=== PATIENT | female | born 1970 | race Two or more races ===

== ENCOUNTER 2016-05-03 14:39 | Inpatient (IN) | payer MEDICAID ==
[~2016-05-03] VITALS: Ht 152.4 cm; Wt 88.0 kg
[~2016-05-03 14:39] MED LIST: CLOT1CRE78; PHEN95TA
[2016-05-03 15:23] LABS: Basophils # (auto) 0 uL; Basophils % (auto) 0.2 % (0.0-2.0); Eosinophils # (auto) 0.1 uL; Eosinophils % (auto) 1.3 % (0.0-7.0); Hematocrit 39.7 % (36.0-46.0); Hemoglobin 13.2 g/dL (12.2-16.2); Lymphocytes # (auto) 2.1 uL; Mean Corpuscular Hemoglobin 29.5 pg (28.0-32.0); Mean Corpuscular Hgb Conc. 33.3 g/dL (32.0-36.0); Mean Corpuscular Volume 88.8 fL (80.0-100.0); Mean Platelet Volume 8.7 fL (7.4-10.4); Monocytes # (auto) 0.6 uL; Monocytes % (auto) 6.5 % (0.0-12.0); Neutrophils # (auto) 5.8 uL; Platelet Count (auto) 300 10^3/uL (140-450); Red Cell Distribution Width 12.6 % (11.6-16.0); White Blood Cell 8.6 10^3/uL (4.4-10.8)
[2016-05-03 15:41] LABS: Albumin 3.6 g/dL (3.4-5.0); Anion Gap 9 (5-15); Aspartate Aminotransferase 10 U/L (15-37); BUN/Creatinine Ratio 20.6; Blood Urea Nitrogen 13 mg/dL (7-18); Calcium 8.1 mg/dL (8.5-10.1); Carbon Dioxide 26 mmol/L (21-32); Chloride 107 mmol/L (98-107); GFR African American 130 mL/min; GFR Non-African American 108 mL/min; Glucose 100 mg/dL (74-106); Magnesium 2.3 mg/dL (1.6-2.6); Potassium 3.9 mmol/L (3.5-5.1); Sodium 142 mmol/L (136-145)
[2016-05-03 15:46] LABS: Alkaline Phosphatase 71 U/L (45-117); Bilirubin, Total 0.2 mg/dL (0.2-1.0); Total Protein 7.4 g/dL (6.4-8.2)
[2016-05-03 20:59] LABS: Urine Bilirubin Negative (Negative); Urine Color Yellow (Yellow); Urine Glucose Normal (Normal); Urine Ketone Negative (Negative); Urine Mucus FEW (None Seen); Urine RBC 1 /hpf (0 - 4); Urine Squamous Epithelial Cell FEW /hpf (<5); Urine Urobilinogen Normal (Negative)
[2016-05-03 21:00] LABS: Urine Blood 1+ /uL (Negative); Urine Nitrite POSITIVE (Negative)
[2016-05-04] VITALS (8 sets, daily range): BP systolic 96–111; BP diastolic 50–67
[2016-05-04] MEDS ORDERED: MORPHINE SULF INJ 2 MG/ML SYRINGE 1ML IV PRN (00:45)
[2016-05-04] MEDS ORDERED: ONDANSETRON HCL 4 MG/2 ML VIAL IV PRN (00:45)
[2016-05-04] MEDS ORDERED: ACETAMINOPHEN 325 MG TAB PO PRN (00:45)
[2016-05-04] MEDS ORDERED: HYDROcodone-ACET 5/325MG TAB PO PRN (00:45)
[2016-05-04] MEDS ORDERED: cefTRIAXone 1GM/50ML D5W 50 ML IV ONE (00:45)
[2016-05-04] MEDS ORDERED: PANTOPRAZOLE SODIUM 40 MG/10 ML VIAL IV ONE (00:45)
[2016-05-04] MEDS ORDERED: TEMAZEPAM 15 MG CAP PO PRN (00:45)
[2016-05-04] MEDS: SODIUM CHLORIDE 0.9% 1,000 ML IV SCH ×2 (00:55→16:31)
[2016-05-04] MEDS: cefTRIAXone 1GM/50ML D5W 50 ML IV SCH (09:39)
[2016-05-04] MEDS: PANTOPRAZOLE SODIUM 40 MG/10 ML VIAL IV SCH (09:41)
[2016-05-05 05:00] VITALS: BP 93/59
[2016-05-05 06:00] LABS: Basophils # (auto) 0 uL; Basophils % (auto) 0.4 % (0.0-2.0); Eosinophils # (auto) 0.1 uL; Eosinophils % (auto) 1.6 % (0.0-7.0); Hematocrit 36.8 % (36.0-46.0); Hemoglobin 12.4 g/dL (12.2-16.2); Lymphocytes # (auto) 1.7 uL; Lymphocytes % (auto) 29.9 % (10.0-50.0); Mean Corpuscular Hemoglobin 29.6 pg (28.0-32.0); Mean Corpuscular Hgb Conc. 33.6 g/dL (32.0-36.0); Mean Corpuscular Volume 88.3 fL (80.0-100.0); Mean Platelet Volume 8.5 fL (7.4-10.4); Monocytes # (auto) 0.4 uL; Monocytes % (auto) 7.3 % (0.0-12.0); Neutrophils # (auto) 3.4 uL; Neutrophils % (auto) 60.8 % (37.0-80.0); Platelet Count (auto) 279 10^3/uL (140-450); Red Cell Distribution Width 12.7 % (11.6-16.0); White Blood Cell 5.6 10^3/uL (4.4-10.8)
[2016-05-05 06:34] LABS: Albumin 3.3 g/dL (3.4-5.0); BUN/Creatinine Ratio 10.2; Bilirubin, Total 0.4 mg/dL (0.2-1.0); Calcium 8.4 mg/dL (8.5-10.1); Potassium 3.8 mmol/L (3.5-5.1); Total Protein 6.7 g/dL (6.4-8.2)
[2016-05-05 08:00] VITALS: BP 94/62
[2016-05-05 09:00] VITALS: BP 94/62
[2016-05-05] MEDS: cefTRIAXone 1GM/50ML D5W 50 ML IV SCH (09:22)
[2016-05-05] MEDS: SODIUM CHLORIDE 0.9% 1,000 ML IV SCH (09:53)
[2016-05-05] MEDS: PANTOPRAZOLE SODIUM 40 MG/10 ML VIAL IV SCH (10:39)
[2016-05-05 13:00] VITALS: BP 99/63
[2016-05-05 16:57] VITALS: BP 96/68
[2016-05-05 21:58] VITALS: BP 102/70
[2016-05-06 04:54] VITALS: BP 96/58
[2016-05-06] MEDS: SODIUM CHLORIDE 0.9% 1,000 ML IV SCH ×2 (05:06→19:22)
[2016-05-06 07:10] LABS: Albumin 3.2 g/dL (3.4-5.0); BUN/Creatinine Ratio 8.6; Bilirubin, Total 0.5 mg/dL (0.2-1.0); Calcium 8.2 mg/dL (8.5-10.1); Potassium 3.5 mmol/L (3.5-5.1); Total Protein 6.3 g/dL (6.4-8.2)
[2016-05-06 08:00] VITALS: BP 95/57
[2016-05-06 08:56] LABS: INR 1.07 (0.9-1.15); Partial Thromboplastin Time 27.1 sec (22.64-33.71)
[2016-05-06 09:00] VITALS: BP 95/57
[2016-05-06] MEDS: cefTRIAXone 1GM/50ML D5W 50 ML IV SCH (09:35)
[2016-05-06] MEDS: PANTOPRAZOLE SODIUM 40 MG/10 ML VIAL IV SCH (10:01)
[2016-05-06] MEDS ORDERED: MIDAZOLAM HCL 1MG/1ML-2 ML VIAL ONE (12:48)
[2016-05-06] MEDS ORDERED: fentaNYL CITRATE 100 MCG/2 ML VL ONE (12:48)
[2016-05-06] MEDS ORDERED: PROPOFOL 10 MG/ML 20 ML IV ONE (12:49)
[2016-05-06] MEDS ORDERED: BUPIVACAINE 0.25% INJ 50ML VIAL ONE (14:30)
[2016-05-06] MEDS ORDERED: HYDROmorphone HCL 2 MG/ML VL IV PRN (14:45)
[2016-05-06] MEDS: HYDROmorphone HCL 2 MG/ML VL ONE ×4 (14:45→15:15)
[2016-05-06] MEDS ORDERED: ONDANSETRON HCL 4 MG/2 ML VIAL IV ONE (14:45)
[2016-05-06] MEDS ORDERED: hydrALAZINE HCL 20 MG/ML VL IV PRN (14:45)
[2016-05-06] MEDS ORDERED: ePHEDrine SULFATE 50 MG/ML AMP IV PRN (14:45)
[2016-05-06 17:00] VITALS: BP 100/59
[2016-05-06 22:00] VITALS: BP 97/64
[2016-05-07 05:16] VITALS: BP 107/57
[2016-05-07 07:00] LABS: Basophils # (auto) 0 uL; Eosinophils # (auto) 0 uL; Hematocrit 36.7 % (36.0-46.0); Hemoglobin 12.1 g/dL (12.2-16.2); Lymphocytes # (auto) 0.8 uL; Lymphocytes % (auto) 7.9 % (10.0-50.0); Mean Corpuscular Volume 88.2 fL (80.0-100.0); Mean Platelet Volume 8.5 fL (7.4-10.4); Monocytes # (auto) 0.4 uL; Monocytes % (auto) 3.9 % (0.0-12.0); Neutrophils # (auto) 8.6 uL; Neutrophils % (auto) 88.2 % (37.0-80.0); Platelet Count (auto) 295 10^3/uL (140-450); Red Cell Distribution Width 12.4 % (11.6-16.0); White Blood Cell 9.7 10^3/uL (4.4-10.8)
[2016-05-07 07:21] LABS: Albumin 3.3 g/dL (3.4-5.0); BUN/Creatinine Ratio 7.4; Bilirubin, Total 0.2 mg/dL (0.2-1.0); Total Protein 6.6 g/dL (6.4-8.2)
[2016-05-07 07:50] VITALS: BP 98/58
[2016-05-07 09:00] VITALS: BP 98/58
[2016-05-07] MEDS: cefTRIAXone 1GM/50ML D5W 50 ML IV SCH (09:15)
[2016-05-07] MEDS: PANTOPRAZOLE SODIUM 40 MG/10 ML VIAL IV SCH (09:16)
[2016-05-07 12:38] VITALS: BP 111/72
[2016-05-07 14:23] VITALS: BP 111/72
== END 2016-05-07 14:55 | disposition home or self-care (01) | DRG 263 ==
LOC: ER 14:39 → OVERFLOW 14:40 → WEST WING 05-04 01:45
PROVIDERS: ADMIT Internal Medicine; ATTEND Internal Medicine
PROC: 0FT44ZZ Resection of Gallbladder, Percutaneous Endoscopic Approach (ICD-10-PCS; principal; 2016-05-06 12:46)
DX: K80.12 Calculus of gallbladder with acute and chronic cholecystitis without obstruction (principal); K76.0 Fatty (change of) liver, not elsewhere classified; E44.1 Mild protein-calorie malnutrition; N39.0 Urinary tract infection, site not specified; E66.01 Morbid (severe) obesity due to excess calories; Z83.3 Family history of diabetes mellitus; Z87.891 Personal history of nicotine dependence; Z98.84 Bariatric surgery status; Z98.51 Tubal ligation status; Z83.6 Family history of other diseases of the respiratory system
CPT/HCPCS: 36415; 71020; 76705; 80053; 81001; 81025; 83735; 84484; 85025; 85610; 85730; 87086; 87088; 87186; 93005; 96374; C9113; J0696; J2250; J2405; J2704; J3490

== ENCOUNTER 2016-05-29 19:48 | Observation (INO) | payer MEDICAID ==
[~2016-05-29] VITALS: Ht 144.8 cm; Wt 86.2 kg
[2016-05-29] MEDS ORDERED: SODIUM CHLORIDE 0.9% 1,000 ML IVB ONE (20:29)
[2016-05-29] MEDS ORDERED: MORPHINE SULF INJ 2 MG/ML SYRINGE 1ML IV ONE (20:30)
[2016-05-29] MEDS ORDERED: ONDANSETRON HCL 4 MG/2 ML VIAL IV ONE (20:30)
[2016-05-29 21:05] LABS: Basophils # (auto) 0 uL; Basophils % (auto) 0.2 % (0.0-2.0); Eosinophils # (auto) 0 uL; Eosinophils % (auto) 0.6 % (0.0-7.0); Hematocrit 35.2 % (36.0-46.0); Hemoglobin 11.7 g/dL (12.2-16.2); Lymphocytes # (auto) 1.2 uL; Lymphocytes % (auto) 14.7 % (10.0-50.0); Mean Corpuscular Hemoglobin 29.3 pg (28.0-32.0); Mean Corpuscular Hgb Conc. 33.2 g/dL (32.0-36.0); Mean Corpuscular Volume 88.1 fL (80.0-100.0); Mean Platelet Volume 8.5 fL (7.4-10.4); Monocytes # (auto) 0.4 uL; Monocytes % (auto) 4.9 % (0.0-12.0); Neutrophils # (auto) 6.3 uL; Neutrophils % (auto) 79.6 % (37.0-80.0); Platelet Count (auto) 285 10^3/uL (140-450); Red Cell Distribution Width 12.4 % (11.6-16.0); White Blood Cell 7.9 10^3/uL (4.4-10.8)
[2016-05-29 21:23] LABS: INR 1.07 (0.9-1.15); Partial Thromboplastin Time 26.8 sec (22.64-33.71)
[2016-05-29 21:25] LABS: Albumin 3.5 g/dL (3.4-5.0); Calcium 7.8 mg/dL (8.5-10.1); Magnesium 1.9 mg/dL (1.6-2.6); Potassium 3.2 mmol/L (3.5-5.1)
[2016-05-29 21:28] LABS: Bilirubin, Total 0.3 mg/dL (0.2-1.0); Total Protein 6.5 g/dL (6.4-8.2)
[2016-05-30 02:14] LABS: Urine Bilirubin Negative (Negative); Urine Blood Negative /uL (Negative); Urine Color Yellow (Yellow); Urine Glucose Normal (Normal); Urine Mucus FEW (None Seen); Urine Nitrite Negative (Negative); Urine RBC <1 /hpf (0 - 4); Urine Squamous Epithelial Cell FEW /hpf (<5); Urine Urobilinogen Normal (Negative); Urine pH 7.5 (5.0-8.0)
[2016-05-30 02:30] LABS: Urine Ketone 2+ (Negative)
[2016-05-30 04:10] VITALS: BP 107/68
== END 2016-05-30 04:14 | disposition home or self-care (01) | DRG 251 ==
LOC: ER 19:48 → OVERFLOW 20:32 → ER 05-30 04:14
PROVIDERS: ADMIT Emergency Medicine; ATTEND Emergency Medicine
DX: R10.9 Unspecified abdominal pain (principal); D64.9 Anemia, unspecified; Z83.3 Family history of diabetes mellitus; Z87.891 Personal history of nicotine dependence; Z90.49 Acquired absence of other specified parts of digestive tract
CPT/HCPCS: 36415; 71010; 74176; 80053; 81001; 82150; 83690; 83735; 85025; 85610; 85730; 93005; 96361; 96374; 96375; 99285; G0378; J2270; J2405; J7030

== ENCOUNTER 2016-06-19 14:33 | Emergency (ER) | payer MEDICAID ==
[~2016-06-19] VITALS: Ht 144.8 cm; Wt 86.2 kg
[2016-06-19] MEDS ORDERED: SODIUM CHLORIDE 0.9% 1,000 ML IV ONE (15:30)
[2016-06-19 15:54] LABS: Urine Bilirubin Negative (Negative); Urine Blood TRACE /uL (Negative); Urine Color Yellow (Yellow); Urine Glucose Normal (Normal); Urine Ketone Negative (Negative); Urine Mucus FEW (None Seen); Urine Nitrite Negative (Negative); Urine RBC 1 /hpf (0 - 4); Urine Squamous Epithelial Cell FEW /hpf (<5)
[2016-06-19 16:12] LABS: Basophils # (auto) 0.1 uL; Basophils % (auto) 0.8 % (0.0-2.0); Eosinophils # (auto) 0.1 uL; Eosinophils % (auto) 1.5 % (0.0-7.0); Hematocrit 37.7 % (36.0-46.0); Hemoglobin 12.5 g/dL (12.2-16.2); Lymphocytes # (auto) 1.8 uL; Lymphocytes % (auto) 26.1 % (10.0-50.0); Mean Corpuscular Hemoglobin 29.3 pg (28.0-32.0); Mean Corpuscular Hgb Conc. 33.2 g/dL (32.0-36.0); Mean Corpuscular Volume 88.3 fL (80.0-100.0); Mean Platelet Volume 9.3 fL (7.4-10.4); Monocytes # (auto) 0.5 uL; Monocytes % (auto) 7.8 % (0.0-12.0); Neutrophils # (auto) 4.3 uL; Neutrophils % (auto) 63.8 % (37.0-80.0); Platelet Count (auto) 266 10^3/uL (140-450); White Blood Cell 6.8 10^3/uL (4.4-10.8)
[2016-06-19 16:19] LABS: Albumin 3.4 g/dL (3.4-5.0); BUN/Creatinine Ratio 24.1; Calcium 7.9 mg/dL (8.5-10.1); Potassium 3.7 mmol/L (3.5-5.1)
[2016-06-19 16:31] LABS: Bilirubin, Total 0.2 mg/dL (0.2-1.0); Total Protein 6.7 g/dL (6.4-8.2)
[2016-06-19 17:54] VITALS: BP 104/62
== END 2016-06-19 18:06 | disposition home or self-care (01) ==
LOC: ER 14:33
DX: R53.1 Weakness (principal); E83.51 Hypocalcemia; F17.210 Nicotine dependence, cigarettes, uncomplicated; Z98.51 Tubal ligation status; Z90.49 Acquired absence of other specified parts of digestive tract
CPT/HCPCS: 36415; 80053; 81001; 82962; 83735; 85025; 96360; 96361; 99285; J7030